=== PATIENT | female | born 1960 | race Caucasian/White ===

== ENCOUNTER 2017-04-21 23:10 | Emergency (ER) | payer SELFPAY ==
[2017-04-21] MEDS ORDERED: Lidocaine/EPINEPHrine/Tetracaine Soln 1 ML TOP ONE (23:17)
--- NOTE | 2017-04-21 23:19 | EDM.PDOC ---
ED HPI GENERAL MEDICAL PROBLEM - General Chief Complaint: Head Injury Stated Complaint: HEAD INJURY Time Seen by Provider: 04/21/17 23:13 - History of Present Illness INITIAL COMMENTS - FREE TEXT/NARRATIVE: HISTORY AND PHYSICAL: History of present illness: The patient is a 56-year-old female who presents via EMS after she had a simple fall from a mattress hitting the left side of her head just above her ear on a nightstand. She was having a normal day prior to those events with no systemic complaints and she does not take any blood thinners. She did not pass out or black out and has not had any headache or nausea. She does complain of bilateral muscle pain in her neck but no bony pain and no neurosensory changes in her extremities and no lower back pain Review of systems: As per history of present illness and below otherwise all systems reviewed and negative. Past medical history: As per history of present illness and as reviewed below otherwise noncontributory. Surgical history: As per history of present illness and as reviewed below otherwise noncontributory. Social history: No reported history of drug or alcohol abuse. Family history: As per history of present illness and as reviewed below otherwise noncontributory. Physical exam: HEENT: Atraumatic except for an jagged laceration noted above the left ear measuring 2.5 cm without soft tissue swelling or active bleeding,, normocephalic , pupils reactive, negative for conjunctival pallor or scleral icterus, mucous membranes moist, throat clear, neck supple, nontender, trachea midline. TMs are normally bilaterally and there are no midline step-offs tenderness defects of the cervical spine but some bilateral paraspinal tenderness Lungs: Clear to auscultation, breath sounds equal bilaterally, chest nontender. Heart: S1S2, regular rhythm no overt murmurs. Abdomen: Soft, nondistended, nontender. NABS Pelvis: Stable nontender. Genitourinary: Deferred. Rectal: Deferred. Extremities: Atraumatic, negative for cords or calf pain. Neurovascular unremarkable. Neuro: Awake, alert, oriented. Cranial nerves II through XII unremarkable. Cerebellum unremarkable. Motor and sensory unremarkable throughout. Exam nonfocal. Diagnostics: She was offered C-spine films and defers Therapeutics: LET to scalp wound care and cleansing Procedure note: After the wound was cleansed by nursing LET was applied and the wound was reexplored and no foreign bodies were appreciated. The skin edges were reapproximated with a total number of #4 diego. There were no complications and the patient tolerated the procedure well. Bacitracin was applied Impression: Scalp laceration Definitive disposition and diagnosis as appropriate pending reevaluation and review of above. - Related Data Allergies Allergy/AdvReac Type Severity Reaction Status Date / Time No Known Allergies Allergy Verified 04/21/17 23:15 Home Meds: Home Meds . [No Known Home Meds] 04/21/17 [History] Past Medical History - Past Health History Medical/Surgical History: Denies Medical/Surgical History Social & Family History - Family History Family Medical History: Noncontributory - Tobacco Use Smoking Status *Q: Never Smoker - Alcohol Use Days Per Week of Alcohol Use: 7 Number of Drinks Per Day: 7 Total Drinks Per Week: 49 - Recreational Drug Use Recreational Drug Use: No Drug Use in Last 12 Months: No ED ROS GENERAL - Review of Systems Review Of Systems: ROS reveals no pertinent complaints other than HPI. ED EXAM, HEAD INJURY - Physical Exam Exam: See Below (See dictation) Course - Vital Signs Last Recorded V/S: Last Vital Signs Temp 36.6 C 04/21/17 23:10 Pulse 110 H 04/21/17 23:10 Resp 18 04/21/17 23:10 BP 199/117 H 04/21/17 23:10 Pulse Ox 94 L 04/21/17 23:10 - Orders/Labs/Meds Meds: Medications Discontinued Medications Generic Name Dose Route Start Last Admin Trade Name Artemq PRN Reason Stop Dose Admin Bacitracin 1 dose 04/21/17 23:31 Bacitracin Oint 1 Gm TOP 04/21/17 23:32 ONETIME ONE Lidocaine/Tetracaine 1 ml 04/21/17 23:17 04/21/17 23:25 Let Soln TOP 04/21/17 23:18 1 ml ONETIME ONE Administration Departure - Departure Time of Disposition: 23:37 Disposition: Home, Self-Care 01 Condition: Good Clinical Impression: Scalp laceration Qualifiers: Encounter type: initial encounter Qualified Code(s): S01.01XA - Laceration without foreign body of scalp, initial encounter - Discharge Information Referrals: PCP,None [Primary Care Provider] - Forms: ED Department Discharge Additional Instructions: The following information is given to patients seen in the emergency department who are being discharged to home. This information is to outline your options for follow-up care. We provide all patients seen in our emergency department with a follow-up referral. The need for follow-up, as well as the timing and circumstances, are variable depending upon the specifics of your emergency department visit. If you don't have a primary care physician on staff, we will provide you with a referral. We always advise you to contact your personal physician following an emergency department visit to inform them of the circumstance of the visit and for follow-up with them and/or the need for any referrals to a consulting specialist. The emergency department will also refer you to a specialist when appropriate. This referral assures that you have the opportunity for followup care with a specialist. All of these measure are taken in an effort to provide you with optimal care, which includes your followup. Under all circumstances we always encourage you to contact your private physician who remains a resource for coordinating your care. When calling for followup care, please make the office aware that this follow-up is from your recent emergency room visit. If for any reason you are refused follow-up, please contact the [facility] emergency department at and ask to speak to the emergency department charge nurse. [facility] Primary care- Internal Medicine and Family [address] [address] Keep area clean and dry for the next 24 hours and then cleanse with mild soap and water pat dry and apply bacitracin. Diego should be removed in 10 days here in the ED or with your provider in the clinic. Use [id number] Tylenol or ibuprofen for pain. Return to ER as needed and as discussed
[2017-04-21] MEDS ORDERED: Bacitracin Oint 1 GM U/D Packet TOP ONE (23:31)
[2017-04-22 01:52] VITALS: BP 160/100
== END 2017-04-22 | disposition home or self-care (01) ==
LOC: MW.ED 23:10
DX: S01.01XA Laceration without foreign body of scalp, initial encounter (principal); W19.XXXA Unspecified fall, initial encounter
CPT/HCPCS: 12001; 99282; 99283

== ENCOUNTER 2017-05-02 11:54 | Emergency (ER) | payer SELFPAY ==
[2017-05-02 12:20] VITALS: BP 176/102
== END 2017-05-02 12:22 | disposition left against medical advice (07) ==
LOC: MW.ED 11:54
DX: Z53.21 Procedure and treatment not carried out due to patient leaving prior to being seen by health care provider (principal)